=== PATIENT | female | born 1990 | race Caucasian/White ===

== ENCOUNTER 2016-07-09 07:34 | Emergency (ER) | payer OTHER ==
[~2016-07-09] VITALS: Ht 180.3 cm; Wt 72.0 kg
[~2016-07-09 07:34] MED LIST: IBUP800T PO; OXYC-302 PO
[2016-07-09] MEDS ORDERED: KETOROLAC 30 MG/1 ML IVPush ONE (08:00)
[2016-07-09] MEDS ORDERED: SODIUM CHLORIDE 0.9% 1,000ML IVBOLUS ONE (08:00)
[2016-07-09] MEDS ORDERED: KETOROLAC 30 MG/1 ML ONE (08:05)
[2016-07-09 08:34] LABS: BLOOD UREA NITROGEN 11 mg/dL (7-18)
[2016-07-09 08:44] LABS: IS PT STATUS REG ER OR PRE ER? YES
[2016-07-09 09:47] VITALS: BP 113/79
== END 2016-07-09 09:50 | disposition home or self-care (01) ==
LOC: ED 08:37
DX: R07.89 Other chest pain (principal)
CPT/HCPCS: 36415; 71010; 80048; 82040; 84484; 85025; 85379; 93005; 96361; 96374; 99285; J1885; J7030